=== PATIENT | male | born 1975 | race Caucasian/White ===

== ENCOUNTER 2022-03-10 15:43 | Inpatient (IN) | payer OTHER, SELFPAY ==
[2022-03-10 16:43] LABS: Base Excess -17.3 mEq/L (-2.0 to +3.0); Calcium, Ionized (venous) 1.05 mmol/L (1.16-1.32); Chloride (VBG) 90 mmol/L (98-106); Hemoglobin (Hb) 14.7 g/dL (13.2-17.3); Sodium 132.1 mmol/L (133-146)
[2022-03-10 16:44] LABS: Actual Bicarbonate (HCO3v) 9 mEq/L (22-28)
[2022-03-10 17:00] LABS: ALT (SGPT) 19 U/L (8-55); AST (SGOT) 21 U/L (5-34); Albumin 3.8 g/dL (3.5-5.0); Alkaline Phosphatase 119 U/L (40-110); BUN (Urea Nitrogen) 31 mg/dL (8.9-20.6); Bilirubin, Total 0.4 mg/dL (0.2-1.2); CK (CPK) 95 U/L (30-200); Calc. Creatinine Clearance 0 mL/min (70-130); Calcium 8.7 mg/dL (7.8-10.44); Carbon Dioxide Less than 8 mmol/L (22-29); Chloride 89 mmol/L (98-107); Estimated GFR 39; Globulin 3.7 g/dL (2.4-3.5); Lipase 6 U/L (8-78); Magnesium 2.1 mg/dL (1.6-2.6); Potassium 5.4 mmol/L (3.5-5.1); Protein, Total 7.5 g/dL (6.0-8.3); Sodium 131 mmol/L (136-145)
[2022-03-10] MEDS ORDERED: Promethazine HCl 12.5 MG in Sodium Chloride 0.9% 50 ML IVPB SCH (17:00)
[2022-03-10 17:05] LABS: #Lymphocytes 0.9 thou/uL (1.20-3.40); #Monocytes 0.9 thou/uL (0.11-0.59); #Neutrophils 12.2 thou/uL (1.40-6.50); %Basophils 0.2 % (0.0-1.0); %Eosinophils 0.1 % (0.0-10.0); %Lymphocytes 6.3 % (21.0-51.0); %Monocytes 6.5 % (0.0-10.0); Mean Corpuscular HGB CONC 32.1 g/dL (32.0-36.0); Mean Corpuscular Hemoglobin 30.1 pg (27.0-31.0); Mean Corpuscular Volume 93.8 fL (78.0-98.0); Mean Platelet Volume 7.3 fL (7.4-10.4); Platelet Count 177 thou/uL (130-400); RBC Distribution Width 11.9 % (11.5-14.5); Red Blood Cell (RBC) Count 4.31 mill/uL (4.70-6.10)
[2022-03-10 17:07] LABS: Glucose 770 mg/dL (70-105)
[2022-03-10] MEDS ORDERED: Insulin Regular 300 UNITS/3 ML VIAL ONE (17:26)
[2022-03-10] MEDS ORDERED: Electrolyte Replacement Protocol 1 EACH IVPB SCH (17:42)
[2022-03-10] MEDS ORDERED: Sodium Chloride 0.9% 1,000 ML IV PRN ×4 (17:42)
[2022-03-10] MEDS ORDERED: Dextrose 5 %-0.45 % NaCl 1,000 ML IV PRN (17:42)
[2022-03-10] MEDS ORDERED: NS 0.9% w/ 20 MEQ KCL 1,000 ML IV PRN ×2 (17:42)
[2022-03-10] MEDS ORDERED: Calcium Carbonate 500 MG ChewTAB PO PRN (17:44)
[2022-03-10] MEDS ORDERED: Acetaminophen 325 MG TAB PO PRN (17:44)
[2022-03-10] MEDS ORDERED: Ondansetron ODT 4 MG TAB PO PRN (17:44)
[2022-03-10] MEDS ORDERED: HUMULIN R 100 UNITS in Sodium Chloride 0.9% 100 ML IVPB SCH (17:45)
[2022-03-10] MEDS ORDERED: INSULIN REGULAR IN 0.9 % NACL 100 UNIT/100 ML BAG ONE (17:51)
[2022-03-10] MEDS ORDERED: Nicotine 14 MG PATCH TD PRN (17:55)
[2022-03-10] MEDS ORDERED: Sodium Bicarb 50 MEQ/50 ML VIAL ONE (18:36)
[2022-03-10 18:41] LABS: Bacteria/HPF None Seen HPF (None Seen); Bilirubin Negative (Negative); Blood, Urine Negative (Negative); Clarity Clear (Clear); Glucose, Urine (Dipstick) Greater than 1000 mg/dL (Negative); Ketone, Urine Greater than 150 mg/dL (Negative); Leukocyte Negative Leu/uL (Negative); Nitrite Negative (Negative); Protein, Urine (Dipstick) Negative (Neg-Trace); RBC/HPF None Seen HPF (0-3); Squamous Epithelial 0-3 HPF (0-3); Urobilinogen Normal mg/dL (Less than 2); WBC/HPF 0-3 HPF (0-3)
[2022-03-10] MEDS ORDERED: Sodium Bicarb 50 MEQ/50 ML Abboject 8.4% SYRINGE IVP SCH (19:00)
[2022-03-10 20:21] LABS: Anion Gap 27 mmol/L (10-20); BUN (Urea Nitrogen) 27 mg/dL (8.9-20.6); Calc. Creatinine Clearance 0 mL/min (70-130); Calcium 8.4 mg/dL (7.8-10.44); Carbon Dioxide 13 mmol/L (22-29); Chloride 105 mmol/L (98-107); Estimated GFR 49; Glucose 319 mg/dL (70-105); Potassium 4.4 mmol/L (3.5-5.1); Sodium 141 mmol/L (136-145)
[2022-03-10 20:27] LABS: Lactic Acid 4.5 mmol/L (0.5-2.2)
[2022-03-10 20:31] LABS: SARS-CoV-2 NAA Rapid Test DETECTED (NotDetected)
[2022-03-10] MEDS: Cholecalciferol 1,000 UNITS (25 MCG) TAB PO SCH ×2 (20:54→21:15)
[2022-03-10] MEDS: D5 1/2 NS w/20 mEq KCL 1,000 ML IV PRN (20:54)
[2022-03-10] MEDS: Zinc Sulfate 220 MG CAP PO SCH ×2 (20:55→21:14)
[2022-03-10] MEDS: Famotidine 20 MG TAB PO SCH ×2 (20:55→21:15)
[2022-03-10] MEDS: Heparin 5,000 UNITS/ML VIAL SC SCH (20:56)
[2022-03-10] MEDS: Ondansetron PF 4 MG/2 ML Vial IVP PRN (23:11)
[2022-03-10 23:35] VITALS: BMI 29.6
[2022-03-11 01:10] LABS: Anion Gap 16 mmol/L (10-20); BUN (Urea Nitrogen) 26 mg/dL (8.9-20.6); Calc. Creatinine Clearance 91 mL/min (70-130); Calcium 7.9 mg/dL (7.8-10.44); Carbon Dioxide 22 mmol/L (22-29); Chloride 108 mmol/L (98-107); Estimated GFR 69; Glucose 162 mg/dL (70-105); Potassium 3.8 mmol/L (3.5-5.1); Sodium 142 mmol/L (136-145)
[2022-03-11] MEDS: D5 1/2 NS w/20 mEq KCL 1,000 ML IV PRN ×4 (01:12→12:43)
[2022-03-11] MEDS ORDERED: Pantoprazole 40 MG VIAL IVP SCH (01:45)
[2022-03-11] MEDS ORDERED: Promethazine HCl 12.5 MG in Sodium Chloride 0.9% 50 ML IVPB SCH (02:00)
[2022-03-11 04:11] LABS: Lactic Acid 1.9 mmol/L (0.5-2.2)
[2022-03-11 04:21] LABS: Anion Gap 14 mmol/L (10-20); BUN (Urea Nitrogen) 23 mg/dL (8.9-20.6); Calc. Creatinine Clearance 97 mL/min (70-130); Carbon Dioxide 24 mmol/L (22-29); Chloride 109 mmol/L (98-107); Estimated GFR 75; Glucose 132 mg/dL (70-105); Potassium 4.1 mmol/L (3.5-5.1); Sodium 143 mmol/L (136-145)
[2022-03-11 04:32] LABS: Phosphorus 1.8 mg/dL (2.3-4.7)
[2022-03-11] MEDS ORDERED: Potassium Phosphate 15 MMOL in Sodium Chloride 0.9% 100 ML IVPB SCH (06:00)
[2022-03-11] MEDS: Ondansetron PF 4 MG/2 ML Vial IVP PRN (07:37)
[2022-03-11] MEDS: Heparin 5,000 UNITS/ML VIAL SC SCH ×2 (07:37→20:49)
[2022-03-11] MEDS: Ascorbic Acid 500 mg Chewable Tablet PO SCH (07:38)
[2022-03-11] MEDS ORDERED: Magnesium 2 GM/50 ML(in water) 2 GM in Premix Bag 1 BAG IVPB SCH (08:00)
[2022-03-11 09:05] LABS: #Lymphocytes 1.5 thou/uL (1.20-3.40); #Monocytes 1.1 thou/uL (0.11-0.59); #Neutrophils 5.6 thou/uL (1.40-6.50); %Basophils 0.1 % (0.0-1.0); %Eosinophils 0.3 % (0.0-10.0); %Monocytes 12.9 % (0.0-10.0); %Neutrophils 68.7 % (42.0-75.0); Hemoglobin 11.3 g/dL (14.0-18.0); Mean Corpuscular HGB CONC 33.3 g/dL (32.0-36.0); Mean Corpuscular Hemoglobin 30.2 pg (27.0-31.0); Mean Corpuscular Volume 90.6 fL (78.0-98.0); Mean Platelet Volume 6.7 fL (7.4-10.4); Platelet Count 183 thou/uL (130-400); Red Blood Cell (RBC) Count 3.74 mill/uL (4.70-6.10); White Blood Cell (WBC) Count 8.1 thou/uL (4.8-10.8)
[2022-03-11] MEDS: Famotidine 20 MG TAB PO SCH ×2 (12:17→20:49)
[2022-03-11] MEDS ORDERED: NPH, Human Insulin Isophane 300 UNIT/3 ML VIAL SC SCH (14:45)
[2022-03-11] MEDS ORDERED: Insulin NPH Human Isophane 100 UNIT/ML (10 ML VIAL) SC SCH (15:00)
[2022-03-11] MEDS ORDERED: Dextrose 50% Abboject 50 ML SYRINGE IVP PRN (18:30)
[2022-03-11] MEDS ORDERED: HumaLOG 300 UNITS/3 ML VIAL SC PRN (18:30)
[2022-03-11] MEDS ORDERED: Dextrose 5% in Water 1,000 ML IV PRN (18:30)
[2022-03-11] MEDS: Cholecalciferol 1,000 UNITS (25 MCG) TAB PO SCH (20:49)
[2022-03-11] MEDS: Zinc Sulfate 220 MG CAP PO SCH (20:49)
[2022-03-12 05:58] LABS: #Lymphocytes 1.3 thou/uL (1.20-3.40); #Neutrophils 7.3 thou/uL (1.40-6.50); %Basophils 0.4 % (0.0-1.0); %Eosinophils 0.3 % (0.0-10.0); %Lymphocytes 13.6 % (21.0-51.0); %Monocytes 10.7 % (0.0-10.0); %Neutrophils 75.1 % (42.0-75.0); Hemoglobin 11.8 g/dL (14.0-18.0); Mean Corpuscular HGB CONC 32.7 g/dL (32.0-36.0); Mean Corpuscular Volume 91.7 fL (78.0-98.0); Mean Platelet Volume 6.9 fL (7.4-10.4); Platelet Count 194 thou/uL (130-400); RBC Distribution Width 11.9 % (11.5-14.5); Red Blood Cell (RBC) Count 3.93 mill/uL (4.70-6.10); White Blood Cell (WBC) Count 9.7 thou/uL (4.8-10.8)
[2022-03-12 06:13] LABS: Anion Gap 17 mmol/L (10-20); BUN (Urea Nitrogen) 12 mg/dL (8.9-20.6); Calc. Creatinine Clearance 113 mL/min (70-130); Calcium 7.8 mg/dL (7.8-10.44); Carbon Dioxide 21 mmol/L (22-29); Chloride 102 mmol/L (98-107); Estimated GFR 91; Glucose 448 mg/dL (70-105); Potassium 4.3 mmol/L (3.5-5.1); Sodium 136 mmol/L (136-145)
[2022-03-12 06:16] LABS: Phosphorus 1.9 mg/dL (2.3-4.7)
[2022-03-12] MEDS ORDERED: Electrolyte Replacement Protocol FS PRN (06:45)
[2022-03-12] MEDS ORDERED: PHOS-NAK 1 PKT PACK PO SCH (08:00)
[2022-03-12] MEDS: Ascorbic Acid 500 mg Chewable Tablet PO SCH (08:44)
[2022-03-12] MEDS: Famotidine 20 MG TAB PO SCH (08:44)
[2022-03-12] MEDS: Heparin 5,000 UNITS/ML VIAL SC SCH (08:45)
[2022-03-12 09:16] VITALS: BP 122/78; TEMP 98.9
[2022-03-12] MEDS ORDERED: NPH, Human Insulin Isophane 300 UNIT/3 ML VIAL SC SCH (09:45)
[2022-03-13] MEDS ORDERED: Insulin NPH Human Isophane 100 UNIT/ML (10 ML VIAL) SQ SCH (09:00)
== END 2022-03-12 11:48 | disposition home or self-care (01) | DRG 637 ==
LOC: ERS 15:43 → IMCU/EMU 17:49 → T4-A 03-11 21:52
PROVIDERS: ADMIT Internal Medicine; ATTEND Internal Medicine
PROC: 8E0ZXY6 Isolation (ICD-10-PCS; principal; 2022-03-10)
DX: E10.10 Type 1 diabetes mellitus with ketoacidosis without coma (principal); U07.1 COVID-19; N17.9 Acute kidney failure, unspecified; E87.1 Hypo-osmolality and hyponatremia; F17.210 Nicotine dependence, cigarettes, uncomplicated; E87.5 Hyperkalemia; D72.829 Elevated white blood cell count, unspecified; E86.0 Dehydration; Z88.8 Allergy status to other drugs, medicaments and biological substances
CPT/HCPCS: 36415; 36416; 71045; 80048; 80053; 81001; 82010; 82550; 82805; 83605; 83690; 83735; 84100; 84484; 85025; 87040; 93005; 96361; 96374; 96375; C9113; J1644; J1815; J2405; J2550; J3475; J3480; J3490; J7042; Q0162; U0002